=== PATIENT | female | born 1980 | race Two or more races ===

== ENCOUNTER 2019-03-22 16:17 | Emergency (ER) | payer MEDICAID ==
[~2019-03-22] VITALS: Ht 154.9 cm; Wt 55.0 kg
[2019-03-22 18:16] VITALS: BP 100/58
== END 2019-03-22 23:54 | disposition left against medical advice (07) ==
LOC: ER 16:17
DX: R10.9 Unspecified abdominal pain (principal); Z53.21 Procedure and treatment not carried out due to patient leaving prior to being seen by health care provider